=== PATIENT | male | born 1970 | race Caucasian/White ===

== ENCOUNTER 2020-03-25 14:13 | Inpatient (IN) | payer OTHER ==
[~2020-03-25] VITALS: Ht 167.6 cm; Wt 72.7 kg
[2020-03-25 16:22] LABS: BASOPHILS % (AUTO) 0.3 % (0.0-2.0); EOSINOPHILS % (AUTO) 1.9 % (1.0-6.0); LYMPHOCYTES # (AUTO) 2.1 K/uL (1.0-4.8); LYMPHOCYTES % (AUTO) 35.7 % (22.0-44.0); MEAN CORPUSCULAR HEMOGLOBIN 30.3 pg (26.0-34.0); MEAN CORPUSCULAR HGB CONC 33.3 G/dL (31.0-37.0); MEAN CORPUSCULAR VOLUME 91 fL (80-100); MONOCYTES # (AUTO) 0.4 K/uL (0.1-1.0); MONOCYTES % (AUTO) 7.5 % (2.0-9.0); NEUTROPHILS # (AUTO) 3.2 K/uL (1.8-7.7); NEUTROPHILS % (AUTO) 54.6 % (40.0-70.0); PLATELET COUNT (AUTO) 253 K/uL (150-450); RED BLOOD CELL COUNT(AUTO) 5.61 MIL/uL (4.50-5.90); RED CELL DISTRIBUTION WIDTH 13.9 % (11.5-14.5)
[2020-03-25] MEDS ORDERED: MAGNESIUM HYDROXIDE SUSPENSION 30 ML UDCUP PO PRN (16:30)
[2020-03-25] MEDS ORDERED: ACETAMINOPHEN 325 MG TABLET PO PRN (16:30)
[2020-03-25 16:31] LABS: COVID AG,FIA SOURCE NASOPHARYNGEAL
[2020-03-25 16:39] LABS: ANION GAP 9 mmol/L (8-16); CALCIUM, TOTAL 9.6 mg/dL (8.8-10.5); CARBON DIOXIDE 30 mmol/L (22-29); CHLORIDE 101 mmol/L (98-107); CREATININE 0.82 mg/dL (0.60-1.30); GLOMERULAR FILTR. RATE CALC > 60 mL/min (>60); GLUCOSE,RANDOM 106 mg/dL (70-110); POTASSIUM 3.9 mmol/L (3.5-5.1); SODIUM SERUM 140 mmol/L (136-145); UREA NITROGEN, BLOOD 16 mg/dL (7-18)
[2020-03-25 16:53] LABS: ALANINE AMINOTRANSFERASE 31 U/L (12-78); ALBUMIN 4.2 g/dL (3.4-5.0); ALKALINE PHOSPHATASE 70 U/L (46-116); ASPARTATE AMINOTRANSFERASE 23 U/L (15-37); BILIRUBIN,TOTAL 1.3 mg/dL (0.1-1.0); FREE T4 (FREE THYROXINE) 1.17 ng/dL (0.76-1.46); THYROID STIMULATING HORMONE 0.15 uIU/mL (0.36-3.74); TOTAL PROTEIN, SERUM 8.4 g/dL (6.4-8.2)
[2020-03-25 17:11] VITALS: BP 125/87
[2020-03-25] MEDS ORDERED: INFLUENZA VIRUS VACCINE QVS 2020-21 (6MO+)/PF 60 MCG/0.5 ML SYRINGE IM ONE (18:15)
[2020-03-25 20:00] VITALS: BP 130/89
[2020-03-26] MEDS: FAMOTIDINE 20 MG TABLET PO SCH (07:49)
[2020-03-26 08:18] VITALS: BP 127/79
[2020-03-26 19:58] VITALS: BP 113/84
[2020-03-27 04:41] VITALS: BP 125/74
[2020-03-27] MEDS: FAMOTIDINE 20 MG TABLET PO SCH (08:15)
[2020-03-27 08:57] VITALS: BP 129/85
[2020-03-27] MEDS: HEPARIN SODIUM,PORCINE 5,000 UNITS/ML VIAL SQ SCH ×2 (16:17→23:30)
[2020-03-27 20:40] VITALS: BP 114/80
[2020-03-28 00:45] VITALS: BP 140/90
[2020-03-28 04:03] VITALS: BP 136/95
[2020-03-28 08:01] VITALS: BP 126/89
[2020-03-28] MEDS: FAMOTIDINE 20 MG TABLET PO SCH (08:12)
[2020-03-28] MEDS: HEPARIN SODIUM,PORCINE 5,000 UNITS/ML VIAL SQ SCH (08:12)
[2020-03-28] MEDS ORDERED: ACET-2247 PO (11:07)
[2020-03-28] MEDS ORDERED: MOM30 PO (11:08)
== END 2020-03-28 13:00 | DRG 885 ==
LOC: EMS 14:13 → 6S 16:24
PROVIDERS: ADMIT Internal Medicine; ATTEND Internal Medicine
DX: F20.9 Schizophrenia, unspecified (principal); Z20.822 Contact with and (suspected) exposure to COVID-19; F10.20 Alcohol dependence, uncomplicated; F41.9 Anxiety disorder, unspecified
CPT/HCPCS: 80053; 84439; 84443; 85025; 99285; G0480; J1644